=== PATIENT | female | born 1980 | race Caucasian/White ===

== ENCOUNTER 2021-08-02 10:33 | Emergency (ER) | payer OTHER ==
[2021-08-02 11:11] LABS: HEMOGLOBIN 14.6 gm/dl (12.3-15.3); RED BLOOD COUNT 4.74 M/UL (4.00-5.10); WHITE BLOOD COUNT 6.9 K/UL (4.5-11.0)
[2021-08-02 11:39] LABS: BUN/CREATININE RATIO 10 (0-10)
[2021-08-02] MEDS ORDERED: TORADOL 10 MG T10 MG PO ×2 (15:46→15:52)
[2021-08-02] MEDS ORDERED: ONDANSETRON ODT4 MG SL (15:52)
[2021-08-02] MEDS ORDERED: PROTONIX40 MG PO (15:52)
== END 2021-08-02 16:12 | disposition home or self-care (01) ==
LOC: ER1 10:33
DX: R07.2 Precordial pain (principal); R10.11 Right upper quadrant pain
CPT/HCPCS: 71045; 76705; 80053; 81001; 82550; 82553; 83690; 84484; 84703; 85025; 85379; 93005; 96374; 96375; 99285; C9113; J1885